=== PATIENT | female | born 1980 | race African-American/Black ===

== ENCOUNTER 2017-04-06 09:15 | Emergency (ER) | payer MEDICARE ==
[~2017-04-06] VITALS: Ht 170.2 cm; Wt 68.0 kg
[2017-04-06 09:15] VITALS: BP 149/114
[~2017-04-06 09:15] MED LIST: BENZ2TAB5 PO; DOXY100C2; PALI1.5T
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
== END 2017-04-06 10:20 | disposition home or self-care (01) ==
LOC: ER 09:15
DX: S61.511A Laceration without foreign body of right wrist, initial encounter (principal); S09.90XA Unspecified injury of head, initial encounter; F20.9 Schizophrenia, unspecified; Z90.49 Acquired absence of other specified parts of digestive tract; Y04.0XXA Assault by unarmed brawl or fight, initial encounter; Y93.89 Activity, other specified; Y99.8 Other external cause status; Y92.89 Other specified places as the place of occurrence of the external cause
CPT/HCPCS: 99282; 99283

== ENCOUNTER 2017-07-14 23:13 | Emergency (ER) | payer MEDICARE ==
[~2017-07-14] VITALS: Ht 177.8 cm; Wt 68.0 kg
[2017-07-14 23:31] LABS: BILIRUBIN,URINE NEGATIVE (NEG); GLUCOSE,URINE NEGATIVE (NEG); NITRITE,URINE NEGATIVE (NEG); PH,URINE 6.5; PROTEIN,URINE NEGATIVE (NEG-TRACE); UROBILINOGEN,URINE 0.2 mg/dL (0.2 mg/dL)
[2017-07-14 23:36] LABS: BACTERIA,URINE FEW /HPF (0-FEW); RBC,URINE 0 /HPF (0-2); SQUAMOUS EPITHELIAL CELL,UR MOD /LPF; WBC,URINE OCC /HPF (0-4)
[2017-07-14 23:36] LABS: BASO # 0.1 x10^3/uL (0.0-0.2); BASO % 1 % (0-3); EOS % 1 % (0-3); HEMATOCRIT 34.3 % (36.0-47.0); HEMOGLOBIN 11.8 g/dL (12.0-15.5); LYMPH # 3.3 x10^3/uL (1.0-4.8); LYMPH % 23 % (24-48); MEAN CORPUSCULAR HEMOGLOBIN 32 pg (25-35); MEAN CORPUSCULAR HGB CONC 34 g/dL (31-37); MEAN CORPUSCULAR VOLUME 94 fL (79-100); MONO % 9 % (0-9); NEUT % 67 % (31-73); PLATELET COUNT 333 x10^3/uL (140-400); RED BLOOD COUNT 3.66 x10^6/uL (3.50-5.40); RED CELL DISTRIBUTION WIDTH 14.1 % (11.5-14.5); WHITE BLOOD COUNT 14.8 x10^3/uL (4.0-11.0)
[2017-07-14 23:46] LABS: ANION GAP 12 (6-14); BLOOD UREA NITROGEN 16 mg/dL (7-20); CALCIUM 8.7 mg/dL (8.5-10.1); CARBON DIOXIDE 24 mmol/L (21-32); CHLORIDE 102 mmol/L (98-107); CREATININE 0.6 mg/dL (0.6-1.0); GFR 137.7; GLUCOSE 86 mg/dL (70-99); POTASSIUM 3.8 mmol/L (3.5-5.1); SODIUM 138 mmol/L (136-145)
[2017-07-14 23:52] LABS: ALBUMIN 3.1 g/dL (3.4-5.0); ALK PHOS 68 U/L (46-116); ALT (SGPT) 34 U/L (14-59); AST (SGOT) 18 U/L (15-37); DIRECT BILIRUBIN < 0.1 mg/dL (0.0-0.2); TOTAL BILIRUBIN 0.1 mg/dL (0.2-1.0); TOTAL PROTEIN 7.2 g/dL (6.4-8.2)
--- NOTE | 2017-07-14 23:55 | PHYS DOC ---
Past Medical History Past Medical History: No Pertinent History, Schizophrenia Past Surgical History: Cholecystectomy Alcohol Use: None Drug Use: None Adult General Chief Complaint Chief Complaint: ABDOMINAL PAIN IN HPI HPI 36-year-old female presenting to the emergency department with mild lower abdominal pain in . She is unsure when her last menstrual period is. Patient is extremely poor historian. She denies vaginal bleeding. Her pain is mild nonradiating intermittent and without alleviating factors. Patient denies any recent trauma or falls. Review of systems is negative for fevers chills cough or if she denies vaginal bleeding, foul-smelling urine dysuria or hematuria. She denies recent changes in her vaginal discharge or foul-smelling discharge. All other review of systems is negative unless otherwise noted in history of present illness. ED course: 36-year-old female presenting with lower abdominal pain and . Triage vital signs afebrile with mild tachycardia. Otherwise systolic blood pressure 155 noted. Pertinent physical exam findings showed a soft nontender abdomen. Normal neurologic exam. No crackles on pulmonary auscultation. Patient does not have a headache. No vision changes. Ultrasound ordered along with blood work. Blood work unremarkable. Urinalysis shows asymptomatic bacteriuria. Keflex given. Patient refused Rh testing. She denies vaginal bleeding. Repeat blood pressure is about 120 systolic. Ultrasound shows intrauterine with heartbeat. The patient was then discharged home in stable condition to follow up with OB over the next 2-3 days. They were to return if their symptoms worsened or if they were concerned for any reason. [id number] discharge instructions and return precautions were given. Patient' s questions were answered to their satisfaction. Patient is comfortable plan. Review of Systems Review of Systems SEE ABOVE. Allergies Allergies Allergies Coded Allergies Type Severity Reaction Last Updated Verified No Known Drug Allergies 10/11/13 No Physical Exam Physical Exam SEE ABOVE Constitutional: Well developed, well nourished, no acute distress, non-toxic appearance. [] HENT: Normocephalic, atraumatic, bilateral external ears normal, oropharynx moist, no oral exudates, nose normal. [] Eyes: PERRLA, EOMI, conjunctiva normal, no discharge. [] Neck: Normal range of motion, no tenderness, supple, no stridor. [] Cardiovascular:Heart rate regular rhythm, no murmur [] Lungs & Thorax: Bilateral breath sounds clear to auscultation [] Abdomen: Bowel sounds normal, soft, no tenderness, no masses, no pulsatile masses. [] Skin: Warm, dry, no erythema, no rash. [] Back: No tenderness, no CVA tenderness. [] Extremities: No tenderness, no cyanosis, no clubbing, ROM intact, no edema. [] Neurologic: Alert and oriented X 3, normal motor function, normal sensory function, no focal deficits noted. [] Psychologic: Affect normal, judgement normal, mood normal. [] Current Patient Data Vital Signs Vital Signs Date Time Temp Pulse Resp B/P (MAP) Pulse Ox O2 Delivery O2 Flow Rate FiO2 07/15/17 00:50 95 18 99 Room Air 07/14/17 23:13 98.8 98.8 Lab Values Laboratory Tests Test 07/14/17 23:16 07/14/17 23:21 07/14/17 23:30 Urine Color Yellow Urine Clarity Clear Urine pH 6.5 Urine Specific [place] 1.020 Urine Protein Negative mg/dL (NEG-TRACE) Urine Glucose (UA) Negative mg/dL (NEG) Urine Ketones (Stick) Negative mg/dL (NEG) Urine Blood Negative (NEG) Urine Nitrite Negative (NEG) Urine Bilirubin Negative (NEG) Urine Urobilinogen Dipstick 0.2 mg/dL (0.2 mg/dL) Urine Leukocyte Esterase Small (NEG) Urine RBC 0 /HPF (0-2) Urine WBC Occ /HPF (0-4) Urine Squamous Epithelial Cells Mod /LPF Urine Bacteria Few /HPF (0-FEW) Urine Mucus Slight /LPF POC Urine HCG, Qualitative Hcg positive (Negative) White Blood Count 14.8 x10^3/uL (4.0-11.0) H Red Blood Count 3.66 x10^6/uL (3.50-5.40) Hemoglobin 11.8 g/dL (12.0-15.5) L Hematocrit 34.3 % (36.0-47.0) L Mean Corpuscular Volume 94 fL (79-100) Mean Corpuscular Hemoglobin 32 pg (25-35) Mean Corpuscular Hemoglobin Concent 34 g/dL (31-37) Red Cell Distribution Width 14.1 % (11.5-14.5) Platelet Count 333 x10^3/uL (140-400) Neutrophils (%) (Auto) 67 % (31-73) Lymphocytes (%) (Auto) 23 % (24-48) L Monocytes (%) (Auto) 9 % (0-9) Eosinophils (%) (Auto) 1 % (0-3) Basophils (%) (Auto) 1 % (0-3) Neutrophils # (Auto) 9.8 x10^3uL (1.8-7.7) H Lymphocytes # (Auto) 3.3 x10^3/uL (1.0-4.8) Monocytes # (Auto) 1.3 x10^3/uL (0.0-1.1) H Eosinophils # (Auto) 0.2 x10^3/uL (0.0-0.7) Basophils # (Auto) 0.1 x10^3/uL (0.0-0.2) Maternal Serum HCG Beta Subunit 02057 mIU/mL (0-5) H Sodium Level 138 mmol/L (136-145) Potassium Level 3.8 mmol/L (3.5-5.1) Chloride Level 102 mmol/L (98-107) Carbon Dioxide Level 24 mmol/L (21-32) Anion Gap 12 (6-14) Blood Urea Nitrogen 16 mg/dL (7-20) Creatinine 0.6 mg/dL (0.6-1.0) Estimated GFR (Cockcroft-Gault) 137.7 Glucose Level 86 mg/dL (70-99) Calcium Level 8.7 mg/dL (8.5-10.1) Total Bilirubin 0.1 mg/dL (0.2-1.0) L Direct Bilirubin < 0.1 mg/dL (0.0-0.2) Aspartate Amino Transferase (AST) 18 U/L (15-37) Alanine Aminotransferase (ALT) 34 U/L (14-59) Alkaline Phosphatase 68 U/L (46-116) Total Protein 7.2 g/dL (6.4-8.2) Albumin 3.1 g/dL (3.4-5.0) L Lipase 186 U/L (73-393) Laboratory Tests 07/14/17 23:30 Laboratory Tests 07/14/17 23:30 EKG EKG [] Radiology/Procedures Radiology/Procedures [] Course & Med Decision Making Course & Med Decision Making Pertinent Labs and Imaging studies reviewed. (See chart for details) [] Dragon Disclaimer Dragon Disclaimer This electronic medical record was generated, in whole or in part, using a voice recognition dictation system. Departure Departure Impression: Primary Impression: Abdominal pain affecting Disposition: HOME, SELF-CARE Condition: STABLE Referrals: NO PCP (PCP) FEMI LEA Jr, MD Patient Instructions: Abdominal Pain During Additional Instructions: Thank you for allowing us to participate in your care today. Followup with OB, dr. lea, in 3 days. Call your Primary Doctor tomorrow and inform them of your visit today. If you do not have a primary care provider you can ask for a list of our primary care providers. Return to the emergency department you have any new or concerning findings. This should be evaluated by the primary care physician and any necessary consulting services for continued management within a few days after discharge. Return to emergency room if you have any new or concerning symptoms including but not limited to fever, chills, nausea, vomiting, intractable pain, any new rashes, chest pain, shortness of air, uncontrolled bleeding, difficulty breathing, and/or vision loss. Scripts Vits W-Ca,Fe,Fa(<1MG) ( VITAMINS) 1 Each Tablet 1 TAB PO DAILY, #15 TAB 0 Refills Prov: JACQUES WEBRE MD 07/15/17 Cephalexin (KEFLEX) 250 Mg Capsule 1 CAP PO QID, #28 CAP Prov: JACQUES WEBER MD 07/15/17 JACQUES WEBER MD Jul 14, 2017 23:54
[2017-07-15 00:33] VITALS: BP 113/64
--- NOTE | 2017-07-15 00:35 | RAD ---
INDICATION: pain x 2 weeks COMPARISON: None. TECHNIQUE: Grayscale and color ultrasound images uterus. FINDINGS: Cervix is closed, 45 mm Placenta posterior. There is fluid in the stomach. kidneys are seen. There is a positive heartbeat of 131. Estimated gestational age 17 weeks and 2 days with estimated due date 12/20/2017. Estimated weight 196 g. IMPRESSION: 1. Intrauterine is identified with estimated gestational age of 17 weeks and 2 days with positive heartbeat. Recommend routine anomaly screening at 18-22 weeks. Electronically signed by: Luis Oleary MD (07/15/2017 12:31 AM) [id number]
[2017-07-15] MEDS ORDERED: PREN1TAB58 PO (00:56)
[2017-07-15] MEDS ORDERED: CEPH-263 PO (00:56)
== END 2017-07-15 01:40 | disposition home or self-care (01) ==
LOC: ER 23:13
DX: O26.892 Other specified pregnancy related conditions, second trimester (principal); R10.30 Lower abdominal pain, unspecified; F20.9 Schizophrenia, unspecified; Z90.49 Acquired absence of other specified parts of digestive tract; Z3A.17 17 weeks gestation of pregnancy
CPT/HCPCS: 36415; 76805; 80048; 80076; 81001; 81025; 83690; 84702; 85025; 87086; 99285-25

== ENCOUNTER 2017-07-17 00:27 | Observation (INO) | payer MEDICARE ==
[~2017-07-17 00:27] MED LIST changes: +CEPH-263 PO; +PREN1TAB58 PO
[2017-07-17] MEDS ORDERED: IV RINGERS,LACTATED 1000ML 1,000 ML IV SCH (00:28)
== END 2017-07-17 01:00 | disposition left against medical advice (07) ==
LOC: UNDOADMOB 00:27 → 3 SO LND 00:27
PROVIDERS: ADMIT Obstetrics & Gynecology; ATTEND Obstetrics & Gynecology
DX: O26.893 Other specified pregnancy related conditions, third trimester (principal); R10.30 Lower abdominal pain, unspecified; Z3A.17 17 weeks gestation of pregnancy
CPT/HCPCS: G0379

== ENCOUNTER 2017-08-20 06:49 | Observation (INO) | payer MEDICARE ==
[2017-08-20] MEDS ORDERED: IV RINGERS,LACTATED 1000ML 1,000 ML IV SCH (07:00)
[2017-08-20 07:50] LABS: BARBITURATES NEG (NEG); BENZODIAZEPINES NEG (NEG); BILIRUBIN,URINE NEGATIVE (NEG); CANNABINOIDS NEG (NEG); COCAINE NEG (NEG); GLUCOSE,URINE NEGATIVE (NEG); METHADONE NEG (NEG); NITRITE,URINE NEGATIVE (NEG); OPIATES NEG (NEG); PHENCYCLIDINE NEG (NEG); PROTEIN,URINE NEGATIVE (NEG-TRACE); UROBILINOGEN,URINE 0.2 mg/dL (0.2 mg/dL)
[2017-08-20 07:58] LABS: BACTERIA,URINE FEW /HPF (0-FEW); RBC,URINE OCC /HPF (0-2); SQUAMOUS EPITHELIAL CELL,UR MOD /LPF
== END 2017-08-20 09:05 | disposition home or self-care (01) ==
LOC: 3 SO LND 06:49
PROVIDERS: ADMIT Obstetrics & Gynecology; ATTEND Obstetrics & Gynecology
DX: Z34.92 Encounter for supervision of normal pregnancy, unspecified, second trimester (principal); Z3A.22 22 weeks gestation of pregnancy
CPT/HCPCS: 80307; 81001; G0378; G0379; G0479

== ENCOUNTER 2017-08-21 22:38 | Observation (INO) | payer MEDICARE | END 2017-08-22 00:02 | disposition home or self-care (01) | LOC: 3 SO LND 22:38 | PROVIDERS: ADMIT Obstetrics & Gynecology; ATTEND Obstetrics & Gynecology | DX: O26.892 Other specified pregnancy related conditions, second trimester (principal); R10.30 Lower abdominal pain, unspecified; O99.342 Other mental disorders complicating pregnancy, second trimester; F20.9 Schizophrenia, unspecified; Z3A.22 22 weeks gestation of pregnancy | CPT/HCPCS: G0379 ==

== ENCOUNTER 2017-08-28 13:08 | Observation (INO) | payer MEDICARE, OTHER ==
[2017-08-28] MEDS ORDERED: IV RINGERS,LACTATED 1000ML 1,000 ML IV SCH (14:55)
== END 2017-08-28 14:40 | disposition left against medical advice (07) ==
LOC: 3 SO LND 13:08
PROVIDERS: ADMIT Obstetrics & Gynecology; ATTEND Obstetrics & Gynecology
DX: Z34.92 Encounter for supervision of normal pregnancy, unspecified, second trimester (principal); Z3A.23 23 weeks gestation of pregnancy
CPT/HCPCS: G0378; G0379

== ENCOUNTER 2017-09-25 20:25 | Observation (INO) | payer MEDICARE, OTHER ==
[2017-09-25] MEDS ORDERED: IV RINGERS,LACTATED 1000ML 1,000 ML IV SCH (21:30)
[2017-09-25 21:34] LABS: BILIRUBIN,URINE NEGATIVE (NEG); GLUCOSE,URINE NEGATIVE (NEG); NITRITE,URINE NEGATIVE (NEG); PROTEIN,URINE NEGATIVE (NEG-TRACE); UROBILINOGEN,URINE 0.2 mg/dL (0.2 mg/dL)
[2017-09-25 21:39] LABS: BARBITURATES NEG (NEG); BENZODIAZEPINES NEG (NEG); CANNABINOIDS NEG (NEG); COCAINE NEG (NEG); METHADONE NEG (NEG); OPIATES NEG (NEG); PHENCYCLIDINE NEG (NEG)
[2017-09-25 21:41] LABS: BACTERIA,URINE MODERATE /HPF (0-FEW); RBC,URINE 0 /HPF (0-2); SQUAMOUS EPITHELIAL CELL,UR MANY /LPF
[2017-09-25 22:29] LABS: BASO # 0.1 x10^3/uL (0.0-0.2); BASO % 0 % (0-3); EOS % 1 % (0-3); HEMATOCRIT 31.9 % (36.0-47.0); LYMPH % 19 % (24-48); MEAN CORPUSCULAR HEMOGLOBIN 33 pg (25-35); MEAN CORPUSCULAR HGB CONC 34 g/dL (31-37); MEAN CORPUSCULAR VOLUME 96 fL (79-100); MONO % 9 % (0-9); NEUT % 71 % (31-73); PLATELET COUNT 317 x10^3/uL (140-400); RED BLOOD COUNT 3.34 x10^6/uL (3.50-5.40); RED CELL DISTRIBUTION WIDTH 13.7 % (11.5-14.5); WHITE BLOOD COUNT 16.1 x10^3/uL (4.0-11.0)
[2017-09-26 23:12] LABS: RPR REFLEX Non Reactive (Non Reactive)
[2017-09-27 01:14] LABS: HIV ANTIBODY Non Reactive (Non Reactive)
[2017-09-27 17:14] LABS: HEP B SURFACE ABDY Non Reactive (.)
== END 2017-09-25 23:00 | disposition home or self-care (01) ==
LOC: 3 SO LND 20:25
PROVIDERS: ADMIT Obstetrics & Gynecology; ATTEND Obstetrics & Gynecology
DX: O26.892 Other specified pregnancy related conditions, second trimester (principal); R10.9 Unspecified abdominal pain; M54.9 Dorsalgia, unspecified
CPT/HCPCS: 36415; 80307; 81001; 85025; 86593; 86762; 86850; 86900; 86901; 87086; G0378; G0379; 86701; 86702; 86703; 86706; 87535; G0479

== ENCOUNTER 2017-10-19 20:38 | Observation (INO) | payer OTHER ==
[2017-10-19] MEDS ORDERED: IV RINGERS,LACTATED 1000ML 1,000 ML IV SCH (21:06)
[2017-10-19 21:21] LABS: BILIRUBIN,URINE NEGATIVE (NEG); GLUCOSE,URINE NEGATIVE (NEG); NITRITE,URINE NEGATIVE (NEG); PROTEIN,URINE NEGATIVE (NEG-TRACE); UROBILINOGEN,URINE 0.2 mg/dL (0.2 mg/dL)
[2017-10-19 21:26] LABS: BARBITURATES NEG (NEG); BENZODIAZEPINES NEG (NEG); CANNABINOIDS NEG (NEG); COCAINE NEG (NEG); METHADONE NEG (NEG); OPIATES NEG (NEG); PHENCYCLIDINE NEG (NEG)
[2017-10-19 21:30] LABS: BACTERIA,URINE FEW /HPF (0-FEW); RBC,URINE OCC /HPF (0-2); SQUAMOUS EPITHELIAL CELL,UR FEW /LPF; WBC,URINE OCC /HPF (0-4)
== END 2017-10-19 23:10 | disposition home or self-care (01) ==
LOC: 3 SO LND 20:38
PROVIDERS: ADMIT Obstetrics & Gynecology; ATTEND Obstetrics & Gynecology
DX: O62.9 Abnormality of forces of labor, unspecified (principal); Z3A.31 31 weeks gestation of pregnancy
CPT/HCPCS: 80307; 81001; G0378; G0379; G0479

== ENCOUNTER 2017-11-04 12:00 | Observation (INO) | payer OTHER ==
[2017-11-04] MEDS ORDERED: IV RINGERS,LACTATED 1000ML 1,000 ML IV (12:21)
== END 2017-11-04 15:15 | disposition home or self-care (01) ==
LOC: 3 SO LND 12:00
DX: Z34.93 Encounter for supervision of normal pregnancy, unspecified, third trimester (principal); Z3A.33 33 weeks gestation of pregnancy
CPT/HCPCS: G0378; G0379

== ENCOUNTER 2017-11-12 21:40 | Observation (INO) | payer OTHER ==
[2017-11-12] MEDS ORDERED: IV RINGERS,LACTATED 1000ML 1,000 ML IV (22:30)
[2017-11-12 22:33] LABS: BILIRUBIN,URINE NEGATIVE (NEG); COLOR,URINE YELLOW; GLUCOSE,URINE NEGATIVE (NEG); NITRITE,URINE NEGATIVE (NEG); PH,URINE 6.5; PROTEIN,URINE NEGATIVE (NEG-TRACE)
[2017-11-12 22:39] LABS: BARBITURATES NEG (NEG); BENZODIAZEPINES NEG (NEG); CANNABINOIDS NEG (NEG); CLARITY,URINE HAZY; COCAINE NEG (NEG); METHADONE NEG (NEG); OPIATES NEG (NEG); PHENCYCLIDINE NEG (NEG)
[2017-11-12 22:41] LABS: BACTERIA,URINE MANY /HPF (0-FEW); RBC,URINE 0 /HPF (0-2); SQUAMOUS EPITHELIAL CELL,UR MANY /LPF
[2017-11-12 22:43] LABS: AMPHETAMINE/METHAMPHETAMINE NEG (NEG); ETHANOL, URINE NEG (NEG)
== END 2017-11-13 13:45 | disposition home or self-care (01) ==
LOC: 3 SO LND 21:40
DX: O26.893 Other specified pregnancy related conditions, third trimester (principal); R10.9 Unspecified abdominal pain; Z3A.34 34 weeks gestation of pregnancy
CPT/HCPCS: 80307; 81001; 87086; G0378; G0379

== ENCOUNTER 2017-11-17 23:48 | Observation (INO) | payer OTHER ==
[2017-11-18] MEDS ORDERED: IV RINGERS,LACTATED 1000ML 1,000 ML IV (00:01)
[2017-11-18 00:33] LABS: BILIRUBIN,URINE NEGATIVE (NEG); CLARITY,URINE CLEAR; COLOR,URINE YELLOW; GLUCOSE,URINE NEGATIVE (NEG); NITRITE,URINE NEGATIVE (NEG); PH,URINE 6.5; PROTEIN,URINE NEGATIVE (NEG-TRACE); UROBILINOGEN,URINE 0.2 mg/dL (0.2 mg/dL)
[2017-11-18 00:41] LABS: BACTERIA,URINE FEW /HPF (0-FEW); RBC,URINE 0 /HPF (0-2); SQUAMOUS EPITHELIAL CELL,UR FEW /LPF
== END 2017-11-18 08:50 | disposition home or self-care (01) ==
LOC: 3 SO LND 23:48
DX: Z34.93 Encounter for supervision of normal pregnancy, unspecified, third trimester (principal); Z3A.35 35 weeks gestation of pregnancy
CPT/HCPCS: 81001; G0378; G0379

== ENCOUNTER 2017-11-18 23:04 | Observation (INO) | payer OTHER | END 2017-11-19 01:30 | disposition left against medical advice (07) | LOC: 3 SO LND 23:04 | DX: O26.893 Other specified pregnancy related conditions, third trimester (principal); R10.9 Unspecified abdominal pain; Z3A.35 35 weeks gestation of pregnancy | CPT/HCPCS: G0378; G0379 ==

== ENCOUNTER 2017-11-23 01:10 | Observation (INO) | payer OTHER ==
[2017-11-23] MEDS ORDERED: IV RINGERS,LACTATED 1000ML 1,000 ML IV ×2 (01:11)
== END 2017-11-23 01:27 | disposition left against medical advice (07) ==
LOC: 3 SO LND 01:10
DX: O99.512 Diseases of the respiratory system complicating pregnancy, second trimester (principal); Z3A.20 20 weeks gestation of pregnancy
CPT/HCPCS: G0378; G0379

== ENCOUNTER 2018-06-14 18:42 | Emergency (ER) | payer OTHER ==
[~2018-06-14] VITALS: Ht 172.7 cm; Wt 68.0 kg
[2018-06-14 19:34] VITALS: BP 155/75
[2018-06-14] MEDS ORDERED: IBUPROFEN 800 MG TABLET. PO ONE (19:45)
[2018-06-14] MEDS ORDERED: METH4TAB2 PO (19:51)
--- NOTE | 2018-06-14 19:52 | PHYS DOC ---
Past Medical History Past Medical History: No Pertinent History, Schizophrenia Past Surgical History: Cholecystectomy Alcohol Use: None Drug Use: None Adult General Chief Complaint Chief Complaint: SORE THROAT HPI HPI Patient is a 37 year old female presents the ED complaining of sore throat 1 day. States she woke up with a sore throat. Complains of pain with swallowing. Describes the pain as sharp. Rates the pain as 6 out of 10. Denies nausea/ vomiting, dizziness, weakness, fever, chest pain, shortness of breath, neck pain or vision changes. Review of Systems Review of Systems Constitutional: Denies fever or chills [] Eyes: Denies change in visual acuity, redness, or eye pain [] HENT: Complains of sore throat. Denies rhinorrhea. Respiratory: Denies cough or shortness of breath [] Cardiovascular: No additional information not addressed in HPI [] GI: Denies abdominal pain, nausea, vomiting, bloody stools or diarrhea [] : Denies dysuria or hematuria [] Musculoskeletal: Denies back pain or joint pain [] Integument: Denies rash or skin lesions [] Neurologic: Denies headache, focal weakness or sensory changes [] All other systems were reviewed and found to be within normal limits, except as documented in this note. Current Medications Current Medications Current Medications Medications (Trade) Dose Ordered Sig/Mey Start Time Stop Time Status Last Admin Dose Admin Ibuprofen (Motrin) 800 mg 1X ONCE 06/14/18 19:45 06/14/18 19:47 DC 06/14/18 19:57 800 MG Allergies Allergies Allergies Coded Allergies Type Severity Reaction Last Updated Verified No Known Drug Allergies 10/11/13 No Physical Exam Physical Exam Constitutional: Well developed, well nourished, no acute distress, non-toxic appearance. [] HENT: Normocephalic, atraumatic, bilateral external ears normal, mild pharyngeal erythema. oropharynx moist, no oral exudates, nose normal. [] Eyes: PERRLA, EOMI, conjunctiva normal, no discharge. [] Neck: Normal range of motion, no tenderness, supple, no stridor. [] Cardiovascular:Heart rate regular rhythm, no murmur [] Lungs & Thorax: Bilateral breath sounds clear to auscultation [] Abdomen: Bowel sounds normal, soft, no tenderness, no masses, no pulsatile masses. [] Skin: Warm, dry, no erythema, no rash. [] Neurologic: Alert and oriented X 3, normal motor function, normal sensory function, no focal deficits noted. [] Psychologic: Affect normal, judgement normal, mood normal. [] Current Patient Data Vital Signs Vital Signs Date Time Temp Pulse Resp B/P (MAP) Pulse Ox O2 Delivery O2 Flow Rate FiO2 06/14/18 19:34 99.0 91 20 155/75 (101) 95 Room Air 99.0 EKG EKG [] Radiology/Procedures Radiology/Procedures [] Course & Med Decision Making Course & Med Decision Making Pertinent Labs and Imaging studies reviewed. (See chart for details) [] Dragon Disclaimer Dragon Disclaimer This electronic medical record was generated, in whole or in part, using a voice recognition dictation system. Departure Departure Impression: Primary Impression: Pharyngitis Disposition: 01 HOME, SELF-CARE Condition: IMPROVED Referrals: UNKNOWN PCP NAME (PCP) Patient Instructions: Viral and Bacterial Pharyngitis Scripts Methylprednisolone (MEDROL) 4 Mg Tab.ds.pk 1 PKG PO UD, #1 PKG Prov: FAB MICHELLE 06/14/18 FAB MICHELLE Jun 14, 2018 19:52
== END 2018-06-14 19:57 | disposition home or self-care (01) ==
LOC: ER 18:42
DX: J02.9 Acute pharyngitis, unspecified (principal); F20.9 Schizophrenia, unspecified
CPT/HCPCS: 99283

== ENCOUNTER 2018-12-14 01:12 | Emergency (ER) | payer OTHER ==
[~2018-12-14] VITALS: Ht 170.2 cm; Wt 68.0 kg
[~2018-12-14 01:12] MED LIST changes: +METH4TAB2 PO
[2018-12-14 01:49] VITALS: BP 113/69
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
[2018-12-14] MEDS ORDERED: IBUPROFEN 600 MG TABLET. PO ONE (03:30)
== END 2018-12-14 05:30 | disposition home or self-care (01) ==
LOC: ER 01:12
DX: R10.30 Lower abdominal pain, unspecified (principal); Z00.00 Encounter for general adult medical examination without abnormal findings; F20.9 Schizophrenia, unspecified; Z90.49 Acquired absence of other specified parts of digestive tract; F17.210 Nicotine dependence, cigarettes, uncomplicated
CPT/HCPCS: 99282

== ENCOUNTER 2019-01-05 00:14 | Emergency (ER) | payer OTHER ==
[~2019-01-05] VITALS: Ht 172.7 cm; Wt 68.0 kg
[2019-01-05 00:14] VITALS: BP 186/112
--- NOTE | 2019-01-05 00:33 | PHYS DOC ---
Past Medical History Past Medical History: Schizophrenia, Other Additional Past Medical Histor: DRUG ABUSE (FAB MICHELLE) Past Surgical History: Cholecystectomy, (FAB MICHELLE) Alcohol Use: None Drug Use: None (FAB MICHELLE) Adult General Chief Complaint Chief Complaint: PAIN CONTROL HPI HPI Patient is a 38 year old female with a history of schizophrenia presents to the ED complaining of left foot pain times one day. Patient states she has been walking a lot and thinks that is why her foot hurts. Patient presents to the ED requesting something for pain. Denies calf swelling, calf pain, fever, weakness , paresthesias, or inability to ambulate. (FAB MICHELLE) Review of Systems Review of Systems Constitutional: Denies fever or chills [] Eyes: Denies change in visual acuity, redness, or eye pain [] HENT: Denies nasal congestion or sore throat [] Respiratory: Denies cough or shortness of breath [] Cardiovascular: No additional information not addressed in HPI [] GI: Denies abdominal pain, nausea, vomiting, bloody stools or diarrhea [] : Denies dysuria or hematuria [] Musculoskeletal: Complains of foot pain. Denies back pain or joint pain [] Integument: Denies rash or skin lesions [] Neurologic: Denies headache, focal weakness or sensory changes [] All other systems were reviewed and found to be within normal limits, except as documented in this note. (FAB MICHELLE) Current Medications Current Medications Current Medications Medications (Trade) Dose Ordered Sig/[facility] Start Time Stop Time Status Last Admin Dose Admin Acetaminophen (Tylenol) 650 mg 1X ONCE 01/05/19 00:45 01/05/19 00:46 DC 01/05/19 00:49 650 MG (RAND CABA MD) Allergies Allergies Allergies Coded Allergies Type Severity Reaction Last Updated Verified No Known Drug Allergies 10/11/13 No (RAND CABA MD) Physical Exam Physical Exam Constitutional: Well developed, well nourished, no acute distress, non-toxic appearance. [] HENT: Normocephalic, atraumatic Cardiovascular:Heart rate regular rhythm, no murmur [] Lungs & Thorax: Bilateral breath sounds clear to auscultation [] Abdomen: Bowel sounds normal, soft, no tenderness, no masses, no pulsatile masses. [] Skin: Warm, dry, no erythema, no rash. [] Back: No tenderness, no CVA tenderness. [] Extremities: no bony tenderness, no cyanosis, no clubbing, ROM intact, no edema. NV intact. no overlying skin changes.[] Neurologic: Alert and oriented X 3, normal motor function, normal sensory function, no focal deficits noted. [] Psychologic: Affect normal, judgement normal, mood normal. [] (FAB MICHELLE) Current Patient Data Vital Signs Vital Signs Date Time Temp Pulse Resp B/P (MAP) Pulse Ox O2 Delivery O2 Flow Rate FiO2 01/05/19 00:14 98.1 91 14 186/112 (136) 98 Room Air 98.1 (RAND CABA MD) EKG EKG [] (FAB MICHELLE) Radiology/Procedures Radiology/Procedures [] (FAB MICHELLE) Course & Med Decision Making Course & Med Decision Making Pertinent Labs and Imaging studies reviewed. (See chart for details) []No bony tenderness. No imaging warranted. Patient able to ambulate without assistance. Patient's pain improved in ED. Discussed symptomatic treatment and follow-up if symptoms persist. Discussed reasons to return to the ED. Patient understands and agrees with plan. (FAB MICHELLE) Course & Med Decision Making Staff Physician Addendum: I was working in the ER during the course of this patient's visit. I was available for consultation as needed, but I was not directly involved in the care of this patient. (RAND CABA MD) Dragon Disclaimer Dragon Disclaimer This electronic medical record was generated, in whole or in part, using a voice recognition dictation system. (FAB MICHELLE) Departure Departure Impression: Primary Impression: Foot pain Disposition: HOME, SELF-CARE Condition: IMPROVED Referrals: NO PCP (PCP) SANDRA SHERMAN MD Patient Instructions: Muscle Strain FAB MICHELLE Jan 05, 2019 00:33 RAND CABA MD Jan 06, 2019 05:32
[2019-01-05] MEDS ORDERED: ACETAMINOPHEN 325 MG TABLET. PO ONE (00:45)
== END 2019-01-05 00:47 | disposition home or self-care (01) ==
LOC: ER 00:14
DX: M79.672 Pain in left foot (principal); F20.9 Schizophrenia, unspecified
CPT/HCPCS: 99282

== ENCOUNTER 2021-06-24 09:12 | Emergency (ER) | payer OTHER ==
[~2021-06-24 09:12] MED LIST changes: -DOXY100C2; +DOXY100C3
== END 2021-06-24 09:29 | disposition left against medical advice (07) ==
LOC: ER 09:12
DX: H92.03 Otalgia, bilateral (principal); Z53.21 Procedure and treatment not carried out due to patient leaving prior to being seen by health care provider